=== PATIENT | male | born 1945 | race African-American/Black ===

== ENCOUNTER 2022-12-05 00:10 | Emergency (ER) | payer OTHER ==
[2022-12-05] MEDS ORDERED: Ondansetron PF 4 MG/2 ML Vial ONE (00:25)
[2022-12-05] MEDS ORDERED: Sodium Chloride 0.9% 1,000 ML ONE ×2 (00:25→07:18)
[2022-12-05 00:48] LABS: Bilirubin Negative (Negative); Blood, Urine Negative (Negative); Clarity Clear (Clear); Glucose, Urine (Dipstick) >=1000 mg/dL (Negative); Ketone, Urine 40 mg/dL (Negative); Leukocyte Negative (Negative); Nitrite Negative (Negative); Protein, Urine (Dipstick) Negative (Neg-Trace); Urobilinogen 0.2 mg/dL (Less than 2)
[2022-12-05 01:02] LABS: #Lymphocytes 1.1 thou/uL (1.20-3.40); #Monocytes 0.5 thou/uL (0.11-0.59); #Neutrophils 6.8 thou/uL (1.40-6.50); %Basophils 0.4 % (0.0-1.0); %Eosinophils 0.2 % (0.0-10.0); %Lymphocytes 12.5 % (21.0-51.0); %Monocytes 5.7 % (0.0-10.0); %Neutrophils 81.2 % (42.0-75.0); Hemoglobin 16.8 g/dL (14.0-18.0); Mean Corpuscular HGB CONC 32.7 g/dL (32.0-36.0); Mean Corpuscular Hemoglobin 27.7 pg (27.0-31.0); Mean Corpuscular Volume 84.8 fl (78.0-98.0); Mean Platelet Volume 10.9 fL (7.4-10.4); Platelet Count 248 10x3/uL (130-400); RBC Distribution Width 12.4 % (11.5-14.5); Red Blood Cell (RBC) Count 6.06 mill/uL (4.70-6.10); White Blood Cell (WBC) Count 8.4 10x3/uL (4.8-10.8)
[2022-12-05 01:14] LABS: SARS-CoV-2 NAA Rapid Test Not Detected (NotDetected)
[2022-12-05 01:23] LABS: ALT (SGPT) 22 U/L (8-55); Albumin 3.8 g/dL (3.4-4.8); Alkaline Phosphatase 209 U/L (40-110); Anion Gap 23 mmol/L (10-20); BUN (Urea Nitrogen) 25 mg/dL (8.4-25.7); Bilirubin, Total 0.6 mg/dL (0.2-1.2); Calc. Creatinine Clearance 0 mL/min (70-130); Calcium 9.4 mg/dL (7.8-10.44); Carbon Dioxide 21 mmol/L (23-31); Chloride 95 mmol/L (98-107); Estimated GFR 42; Globulin 3.6 g/dL (2.4-3.5); Potassium 5.3 mmol/L (3.5-5.1); Protein, Total 7.4 g/dL (5.8-8.1); Sodium 134 mmol/L (136-145)
[2022-12-05 01:26] LABS: AST (SGOT) 20 U/L (5-34); Glucose 682 mg/dL (83-110); Magnesium 2.1 mg/dL (1.6-2.6)
[2022-12-05] MEDS ORDERED: Insulin Regular 300 UNITS/3 ML VIAL ONE (01:41)
[2022-12-05 02:27] LABS: Base Excess-Venous -3.5 mmol/L (-2.0 to 3.0); Bicarbonate (HCO3v) 19.4 mmol/L (22.0-28.0); CO2 Tension (PvCO2) 29.4 mmHg (42.0-51.0); Hemoglobin - Calc 16.3 g/dL (14.0-18.0); Potassium 8.1 mmol/L (3.5-5.1); Sodium 130 mmol/L (138-145); vO2 Saturation-calc 99.6 % (60.0-85.0)
[2022-12-05 02:28] LABS: Calcium, Ionized 0.96 mmol/L (1.15-1.33); Chloride 103 mmol/L (98-107); T. Carbon Dioxide 20.3 mmol/L (22.0-28.0)
[2022-12-05] MEDS ORDERED: INSULIN REGULAR IN 0.9 % NACL 100 UNIT/100 ML BAG ONE (03:03)
[2022-12-05] MEDS ORDERED: Sodium Chloride 0.9% 100 ML ONE (03:03)
[2022-12-05] MEDS ORDERED: metFORMIN 500 MG TAB ONE (06:38)
[2022-12-05] MEDS ORDERED: Carvedilol 25 MG TAB ONE (06:38)
[2022-12-05] MEDS ORDERED: Furosemide 40 MG TAB ONE (06:38)
[2022-12-05] MEDS ORDERED: Clopidogrel Bisulfate 75 MG TAB ONE (06:38)
[2022-12-05] MEDS ORDERED: FLUoxetine HCl 10 MG CAP ONE (06:38)
[2022-12-05] MEDS ORDERED: Losartan Potassium 50 MG TAB ONE (06:38)
[2022-12-05] MEDS ORDERED: Amlodipine 5 MG TAB ONE (06:38)
[2022-12-05] MEDS ORDERED: Levothyroxine Sodium 50 MCG TAB PO SCH (07:00)
[2022-12-05 09:16] LABS: Anion Gap 18 mmol/L (10-20); BUN (Urea Nitrogen) 17 mg/dL (8.4-25.7); Calc. Creatinine Clearance 0 mL/min (70-130); Calcium 8.9 mg/dL (7.8-10.44); Carbon Dioxide 23 mmol/L (23-31); Chloride 100 mmol/L (98-107); Estimated GFR 59; Glucose 220 mg/dL (83-110); Sodium 135 mmol/L (136-145)
[2022-12-05 10:25] LABS: Potassium 3.7 mmol/L (3.5-5.1)
== END 2022-12-05 10:54 | disposition short-term general hospital (02) ==
LOC: NAV ERS 00:10
DX: E11.10 Type 2 diabetes mellitus with ketoacidosis without coma (principal); Z91.14 Patient's other noncompliance with medication regimen; Z20.822 Contact with and (suspected) exposure to COVID-19; I25.10 Atherosclerotic heart disease of native coronary artery without angina pectoris; Z86.73 Personal history of transient ischemic attack (TIA), and cerebral infarction without residual deficits; I10 Essential (primary) hypertension; E11.9 Type 2 diabetes mellitus without complications; E03.9 Hypothyroidism, unspecified; E78.5 Hyperlipidemia, unspecified; Z79.899 Other long term (current) drug therapy; Z79.84 Long term (current) use of oral hypoglycemic drugs
CPT/HCPCS: 36416; 80053; 81003; 82010; 82330; 82803; 83735; 84100; 84484; 85025; 96361; 96374; 96375; 36415-59; J1815; J2405; J7050; U0002